=== PATIENT | male | born 1955 | race Caucasian/White ===

== ENCOUNTER 2018-09-17 18:46 | Emergency (ER) | payer OTHER ==
[~2018-09-17] VITALS: Ht 185.4 cm; Wt 113.4 kg
[2018-09-17 19:01] VITALS: Ht 185.4 cm; Wt 113.4 kg
[2018-09-17 22:44] VITALS: BP 149/86
== END 2018-09-17 22:44 | disposition home or self-care (01) ==
LOC: ED 18:46
DX: M16.11 Unilateral primary osteoarthritis, right hip (principal)
CPT/HCPCS: 87491; 87591; J1885; Q0092

== ENCOUNTER 2019-03-03 15:41 | Emergency (ER) | payer OTHER ==
[~2019-03-03] VITALS: Ht 182.9 cm; Wt 114.8 kg
[2019-03-03 15:55] VITALS: Ht 182.9 cm; Wt 114.8 kg
[2019-03-03 18:54] LABS: BASOPHIL % 0.8 % (0-2)
[2019-03-03 18:55] LABS: PLATELET COUNT 124 x10^3mcL (130-400); RED CELL DISTRIBUTION WIDTH 16.8 % (11.5-14.5)
[2019-03-03 19:03] LABS: CARBON DIOXIDE 26.6 mmol/L (21-32); CHLORIDE SERUM 106 mmol/L (98-107); CREATININE SERUM 0.9 mg/dL (0.7-1.3); GFR1 > 60 mL/min; GLUCOSE SERUM 74 mg/dL (74-106); POTASSIUM SERUM 4.2 mmol/L (3.5-5.1); SODIUM SERUM 137 mmol/L (136-145)
[2019-03-03 19:15] LABS: ALKALINE PHOSPHATASE 117 U/L (46-116); ALT/SGPT 26 U/L (16-63); AST/SGOT 44 U/L (15-37); BILIRUBIN TOTAL 1.78 mg/dL (0.20-1.00); C REACTIVE PROTEIN 1.3 mg/dL (<=0.9); TOTAL PROTEIN, SERUM 7.1 g/dL (6.4-8.2)
[2019-03-03 19:17] LABS: ALBUMIN 2.3 g/dL (3.4-5.0)
[2019-03-03 19:30] LABS: ERYTHROCYTE SED RATE 51 mm/hr (0-20)
[2019-03-03 20:57] VITALS: BP 144/81
== END 2019-03-03 20:57 | disposition home or self-care (01) ==
LOC: ED 15:41
PROVIDERS: Emergency Medicine
DX: R60.0 Localized edema (principal); Z98.890 Other specified postprocedural states
CPT/HCPCS: 36415; Q0092